=== PATIENT | male | born 1995 | race Caucasian/White ===

== ENCOUNTER 2018-12-23 01:08 | Emergency (ER) | payer OTHER ==
[~2018-12-23] VITALS: Ht 162.6 cm; Wt 72.6 kg
[2018-12-23] MEDS ORDERED: MEDROL4 MG PO (06:52)
[2018-12-23] MEDS ORDERED: BENADRYL25 MG PO (06:52)
[2018-12-23] MEDS ORDERED: IMODIUM A-D2 M2 PO (06:52)
[2018-12-23] MEDS ORDERED: LEVSIN/SL0.125 MG SL (06:52)
== END 2018-12-23 06:56 | disposition home or self-care (01) ==
LOC: ER 01:08 → EDSEX 01:09 → ER 06:56
DX: T78.49XA Other allergy, initial encounter (principal); R22.0 Localized swelling, mass and lump, head; K52.9 Noninfective gastroenteritis and colitis, unspecified